=== PATIENT | female | born 1975 | race Caucasian/White ===

== ENCOUNTER 2016-11-15 16:19 | Emergency (ER) | payer MEDICAID | END 2016-11-15 18:50 | disposition home or self-care (01) | LOC: D.ER 16:19 | DX: R07.89 Other chest pain (principal); H81.10 Benign paroxysmal vertigo, unspecified ear; I49.3 Ventricular premature depolarization ==

== ENCOUNTER 2017-11-22 12:23 | Emergency (ER) | payer SELFPAY ==
[~2017-11-22] VITALS: Ht 160 cm; Wt 63.6 kg
[2017-11-22 12:26] VITALS: Ht 160 cm; Wt 63.6 kg
[2017-11-22] MEDS ORDERED: NAPROSYN500 MG PO (12:29)
[2017-11-22] MEDS ORDERED: TORADOL10 MG PO (14:46)
[2017-11-22] MEDS ORDERED: NEURONTIN 300300 MG PO (14:46)
[2017-11-22 15:16] VITALS: BP 113/70
== END 2017-11-22 15:17 | disposition home or self-care (01) ==
LOC: D.ER 12:23
DX: M54.16 Radiculopathy, lumbar region (principal)

== ENCOUNTER 2018-02-04 19:48 | Emergency (ER) | payer SELFPAY ==
[~2018-02-04] VITALS: Ht 160 cm; Wt 54.5 kg
[~2018-02-04 19:48] MED LIST: NAPROSYN500 MG PO; NEURONTIN 300300 MG PO; TORADOL10 MG PO
[2018-02-04 19:55] VITALS: Ht 160 cm; Wt 54.5 kg
[2018-02-04] MEDS ORDERED: ZITHROMAX500 MG PO (21:33)
[2018-02-04] MEDS ORDERED: NORCO 5/325 TAB1 TAB PO (21:33)
[2018-02-04] MEDS ORDERED: PHENERGAN25 M1 PO (21:33)
[2018-02-04 22:08] VITALS: BP 138/88
== END 2018-02-04 22:08 | disposition home or self-care (01) ==
LOC: D.ER 19:48
DX: J20.9 Acute bronchitis, unspecified (principal); R11.2 Nausea with vomiting, unspecified; R07.81 Pleurodynia

== ENCOUNTER 2018-04-14 06:58 | Emergency (ER) | payer MEDICAID ==
[~2018-04-14] VITALS: Ht 160 cm; Wt 59.1 kg
[~2018-04-14 06:58] MED LIST changes: +NORCO 5/325 TAB1 TAB PO; +PHENERGAN25 M1 PO; +ZITHROMAX500 MG PO
[2018-04-14 07:17] VITALS: Ht 160 cm; Wt 59.1 kg
[2018-04-14 07:46] LABS: BASOPHILS 0.3 % (0-2); HEMATOCRIT 40.3 % (36.0-48.0); HEMOGLOBIN 13.3 g/dL (12-16); IMMATURE GRANULOCYTES 0.5 % (0-5); LYMPHOCYTES 32.3 % (15-50); MCH 28.8 pg (26.0-34.0); MCV 87.2 fL (80.0-100.0); MONOCYTES 10.8 % (2-11); NEUTROPHILS 54.1 % (40-80); PLATELET COUNT 254 10x3/uL (130-400); RBC 4.62 10x6/uL (4.00-5.40); WBC 6.6 10x3/uL (4.8-10.8)
[2018-04-14 08:00] LABS: ALBUMIN 3.6 g/dL (3.4-5.0); ALKALINE PHOSPHATASE 60 U/L (46-116); ALT (SGPT) 11 U/L (10-68); BILIRUBIN - TOTAL 0.26 mg/dL (0.2-1.3); CALC OSMOLALITY 276 mosm/kg (275-300); CALCIUM 8.8 mg/dL (8.5-10.1); CARBON DIOXIDE 24.6 mmol/L (21.0-32.0); CHLORIDE - SERUM 103 mmol/L (98-107); CREATININE - SERUM 0.9 mg/dL (0.6-1.3); GLUCOSE 97 mg/dL (74-106); POTASSIUM - SERUM 4.2 mmol/L (3.5-5.1); PROTEIN - SERUM 7.8 g/dL (6.4-8.2); SODIUM 139 mmol/L (136-145); UREA NITROGEN 9 mg/dL (7-18); eGFR NON AFRICAN AMERICAN 73 mL/min (90-120)
[2018-04-14 08:10] LABS: CKMB 0.3 U/L (0.0-3.6)
[2018-04-14 08:11] LABS: TROPONIN-I < 0.017 ng/mL (0.000-0.060)
[2018-04-14] MEDS ORDERED: MECLIZINE HCL25 MG PO (11:15)
[2018-04-14 13:26] VITALS: BP 112/65
--- NOTE | 2018-04-18 11:45 | CN ---
PATIENT NAME:LJ EVANS MEDICAL RECORD: [id number] : 77 LOCATION:.ER ADMIT DATE: ACCOUNT: [id number] CONSULTING PHYSICIAN: DANIELA AMBRIZ MD REFERRING PHYSICIAN: EITAN WHITT MD DATE OF CONSULTATION: 04/14/2018 CARDIOLOGY CONSULT DIAGNOSES: 1. Syncope. 2. History of PVCs. 3. Chest tightness. 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 Sadiq Alexander at the [facility] here in [place]. She has not seen him for a while. She had a nuclear stress test within the past year and this was normal. She awoke with chest tightness and some palpitations today and supposedly had an episode of syncope. It is difficult to say if she was totally out as she heard people yelling that you are passing out. Head CT here is negative. Troponin is negative and EKG is normal with no ST-T changes. OVERALL IMPRESSION: Syncope or possible near syncope, unknown etiology, may have been related to her dysrhythmia; even though, on telemetry here, she has not had any significant dysrhythmia, not even PVCs. With a normal nuclear stress test within the past year and at her age, I do not feel any further ischemic workup is necessary. She will contact Dr. Alexander. He may want to do a multiday monitor on her at this point. TRANSINT:[id number] Voice Confirmation ID: [id number] DOCUMENT ID: [id number] DANIELA AMBRIZ MD at 1145 CC: [id number] DICTATION DATE: 04/14/18 0859 NUCLEAR FUELS RECLAMATION ENGINEER: 04/14/18 1141 DEP ER 04/14/18 [place] [id number]
== END 2018-04-14 13:26 | disposition home or self-care (01) ==
LOC: D.ER 06:58
PROVIDERS: Family Medicine
DX: R55 Syncope and collapse (principal); R07.9 Chest pain, unspecified

== ENCOUNTER 2018-05-23 17:45 | Emergency (ER) | payer MEDICAID ==
[~2018-05-23] VITALS: Ht 160 cm; Wt 61.4 kg
[~2018-05-23 17:45] MED LIST changes: +MECLIZINE HCL25 MG PO
[2018-05-23 17:49] VITALS: Ht 160 cm; Wt 61.4 kg
[2018-05-23 18:41] LABS: BASOPHILS 0.1 % (0-2); HEMATOCRIT 38.2 % (36.0-48.0); HEMOGLOBIN 12.3 g/dL (12-16); IMMATURE GRANULOCYTES 0.3 % (0-5); LYMPHOCYTES 29.6 % (15-50); MCH 27.7 pg (26.0-34.0); MCHC 32.2 g/dL (31.0-37.0); MEAN PLATELET VOLUME 12.6 fL (7.4-10.4); MONOCYTES 10.6 % (2-11); NEUTROPHILS 58.4 % (40-80); PLATELET COUNT 228 10x3/uL (130-400); RBC 4.44 10x6/uL (4.00-5.40); RDW 13.2 % (11.5-14.5); WBC 7.1 10x3/uL (4.8-10.8)
[2018-05-23 18:56] LABS: ALBUMIN 3.6 g/dL (3.4-5.0); ANION GAP 14.4 mmol/L (8-16); BILIRUBIN - TOTAL 0.23 mg/dL (0.2-1.3); CALCIUM 8.6 mg/dL (8.5-10.1); CARBON DIOXIDE 26.2 mmol/L (21.0-32.0); CREATININE - SERUM 0.9 mg/dL (0.6-1.3); POTASSIUM - SERUM 3.6 mmol/L (3.5-5.1); PROTEIN - SERUM 7.9 g/dL (6.4-8.2)
[2018-05-23 19:08] LABS: CKMB 0.5 U/L (0.0-3.6); CREATINE KINASE 66 UL (21-215); TROPONIN-I < 0.017 ng/mL (0.000-0.060)
[2018-05-23 20:47] LABS: APPEARANCE CLEAR (CLEAR); BILIRUBIN NEGATIVE (NEGATIVE); COLOR YELLOW (YELLOW); GLUCOSE NEGATIVE (NEGATIVE); KETONE NEGATIVE (NEGATIVE); NITRITE NEGATIVE (NEGATIVE); PROTEIN NEGATIVE (NEGATIVE); SPECIFIC GRAVITY 1.015 (1.005-1.020); UROBILINOGEN NORMAL (NORMAL)
[2018-05-23] MEDS ORDERED: TORADOL10 MG PO (21:02)
[2018-05-23] MEDS ORDERED: ZOFRAN8 MG PO (21:02)
[2018-05-23 21:21] VITALS: BP 111/67
== END 2018-05-23 21:22 | disposition home or self-care (01) ==
LOC: D.ER 17:45
PROVIDERS: Family Medicine
DX: R55 Syncope and collapse (principal); M54.5 Low back pain; R11.2 Nausea with vomiting, unspecified

== ENCOUNTER 2018-09-15 12:16 | Emergency (ER) | payer MEDICAID ==
[~2018-09-15] VITALS: Ht 160 cm; Wt 61.4 kg
[~2018-09-15 12:16] MED LIST changes: +ZOFRAN8 MG PO
[2018-09-15 12:20] VITALS: BP 118/90; Ht 160 cm; Wt 61.4 kg
[2018-09-15] MEDS ORDERED: FLORINEF 0.1 M0.1 MG PO (12:31)
[2018-09-15] MEDS ORDERED: MIDODRINE HCL2.5 MG PO (12:31)
[2018-09-15] MEDS ORDERED: BAYER CHEWABLE81 MG PO (12:32)
[2018-09-15 12:56] LABS: BASOPHILS 0.3 % (0-2); HEMATOCRIT 39.2 % (36.0-48.0); HEMOGLOBIN 13.1 g/dL (12-16); IMMATURE GRANULOCYTES 0.2 % (0-5); LYMPHOCYTES 24.2 % (15-50); MCH 28.4 pg (26.0-34.0); MCHC 33.4 g/dL (31.0-37.0); MEAN PLATELET VOLUME 11.7 fL (7.4-10.4); MONOCYTES 8.6 % (2-11); NEUTROPHILS 65.7 % (40-80); RBC 4.61 10x6/uL (4.00-5.40); RDW 16.8 % (11.5-14.5); WBC 5.9 10x3/uL (4.8-10.8)
[2018-09-15 13:05] LABS: PLATELET COUNT 159 10x3/uL (130-400)
[2018-09-15 13:14] LABS: ALBUMIN 3.6 g/dL (3.4-5.0); BILIRUBIN - TOTAL 0.39 mg/dL (0.2-1.3); CALCIUM 8.3 mg/dL (8.5-10.1); CARBON DIOXIDE 24.7 mmol/L (21.0-32.0); CREATININE - SERUM 0.9 mg/dL (0.6-1.3); POTASSIUM - SERUM 3.7 mmol/L (3.5-5.1); PROTEIN - SERUM 7.4 g/dL (6.4-8.2)
== END 2018-09-15 15:00 | disposition home or self-care (01) ==
LOC: D.ER 12:16
PROVIDERS: Family Medicine
DX: R42 Dizziness and giddiness (principal); R00.0 Tachycardia, unspecified